=== PATIENT | female | born 1950 | race Caucasian/White ===

== ENCOUNTER 2016-04-27 11:17 | Emergency (ER) | payer OTHER ==
--- NOTE | ~2016-04-27 | CR63 ---
[facility] A Service of [facility] RADIOLOGY TEXT RESULTS PATIENT: BARBARA PENA LOCATION: SED : 54 UNIT #: [id number] AGE: [address]: Matt Shaw MD SEX: F ORDER DR: [id number] [address] [address] [id number] E MR#: [id number] Acc #: [id number] NAME: BARBARA PENA. : 1950 SEX: F STUDY DATE/TIME: 04/27/2016 11:27 UNIT: SED ROOM: STUDY DESCRIPTION: CR Chest 2 View Attending Physician: Matt Shaw M.D. Ordering Physician: Matt Shaw M.D. Primary Care Physician: Brooks Hanson M.D. MEDICAL IMAGING REPORT This report is preliminary unless electronic signature is present. EXAM Chest 2 views 04/27/2016 1127 hours CLINICAL HISTORY 66-year-old with cough and chest tightness for 5 days. Ear pain, upper chest pain. COMPARISON 04/07/2013 FINDINGS Upright PA and lateral views of the chest demonstrate normal cardiac, mediastinal and hilar contours. There is patchy density at the anterior left lung base concerning for pneumonia. No definite right-sided density or effusion. IMPRESSION There is patchy airspace density at the anterior right lung base new from 04/07/2013 and likely an area of acute infection, less likely atelectasis or nodule. Suggest treatment for pneumonia with followup chest radiographs to resolution. If this fails to rapidly respond to therapy, I would recommend a followup chest CT at that time. STAT * RESULT Dictated by... Rocio Howard M.D. THIS IS AN ELECTRONICALLY VERIFIED REPORT Rocio Howard M.D. at 04/27/2016 1:19 PM SMM/kimberly [facility] A Service of [facility] RADIOLOGY TEXT RESULTS PATIENT: BARBARA PENA LOC[place] [facility] : 54 UNIT #: [id number] AGE: [address]: Matt Shaw MD SEX: F ORDER DR: TD: 04/27/2016 12:33 JOB #: [id number] MEDICAL IMAGING REPORT Page 1 of 1
[~2016-04-27 11:17] MED LIST: ALBUTEROL17 GM INH; AMOXICILLIN PO; ANEXSIA 7.5/3251 TA1 PO; AUGMENTIN PO; AZITHROMYCIN250 MG PO; DOXYCYCLINE HY100 M1 PO; HYCODAN60 ML 5MG/ PO; IBUPROFEN PO; LAXATIVE; LORTAB 5/500 TA1 TA1 PO; LORTAB 5/500 TA1 TA2 PO; MUCINEX D ER T1 EACH PO; MUCINEX DM1 TAB.SR . PO; NAPROXEN500 M1 PO; NO MEDICATIONS; PERCOCET10 PO; PHENERGAN PO; PHENERGAN25 MG PO; PREDNISONE PO; REQUIP1 MG PO; TYLENOL COLD CA1 TA1; ULTRAM PO; VOLTAREN75 MG PO; ZOFRAN PO
== END 2016-04-27 12:16 | disposition home or self-care (01) ==
LOC: SED 11:17
DX: J45.901 Unspecified asthma with (acute) exacerbation (principal); J18.9 Pneumonia, unspecified organism; J06.9 Acute upper respiratory infection, unspecified; F17.210 Nicotine dependence, cigarettes, uncomplicated
CPT/HCPCS: 71020; 94640; 99284

== ENCOUNTER 2016-10-17 17:48 | Emergency (ER) | payer OTHER ==
[~2016-10-17] VITALS: Ht 160 cm; Wt 93.0 kg
--- NOTE | ~2016-10-17 | CR170 ---
[facility] A Service of [facility] RADIOLOGY TEXT RESULTS PATIENT: BARBARA PENA LOCATION: SED : 54 UNIT #: [id number] AGE: [address]: Brigido De La Garza SEX: F ORDER DR: [id number] [address] [address] [id number] E MR#: [id number] Acc #: [id number] NAME: BARBARA PENA : 1950 SEX: F STUDY DATE/TIME: 10/17/2016 19:05 UNIT: SED ROOM: STUDY DESCRIPTION: CR Knee 2 Views Rt Attending Physician: Brigido De La Garza P.A.-C. Ordering Physician: Brigido De La Garza P.A.-C. Primary Care Physician: Brooks Hanson M.D. MEDICAL IMAGING REPORT This report is preliminary unless electronic signature is present. EXAM Right knee 2 views HISTORY Knee pain for 2 days. No injury. FINDINGS AP and lateral projection of the knee shows smooth articular anatomy without indication of fracture or dislocation at the major weight-bearing surface of the knee. There is no indication of radiopaque foreign body about the knee surface or joint effusion. IMPRESSION Normal knee. Dictated by... Phil Enriquez M.D. THIS IS AN ELECTRONICALLY VERIFIED REPORT Phil Enriquez M.D. at 10/18/2016 2:28 PM DFL/df TD: 10/18/2016 13:29 JOB #: [id number] MEDICAL IMAGING REPORT Page 1 of 1
== END 2016-10-17 20:15 | disposition home or self-care (01) ==
LOC: SED 17:48
DX: M54.31 Sciatica, right side (principal); F17.210 Nicotine dependence, cigarettes, uncomplicated; Z88.1 Allergy status to other antibiotic agents
CPT/HCPCS: 73560; 99283